=== PATIENT | female | born 1955 | race Caucasian/White ===

== ENCOUNTER 2017-07-03 14:46 | Emergency (ER) | payer OTHER ==
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
[2017-07-03] MEDS ORDERED: IBUPROFEN 600 MG TAB PO ONE (16:20)
[2017-07-03 17:53] VITALS: BP 128/68
== END 2017-07-03 17:51 | disposition home or self-care (01) ==
DX: S39.92XA Unspecified injury of lower back, initial encounter (principal); S32.020A Wedge compression fracture of second lumbar vertebra, initial encounter for closed fracture; I10 Essential (primary) hypertension; V48.5XXA Car driver injured in noncollision transport accident in traffic accident, initial encounter; Y92.79 Other farm location as the place of occurrence of the external cause; Y99.8 Other external cause status; Y93.89 Activity, other specified

== ENCOUNTER → 2017-08-27 | Day surgery (SDC) | payer OTHER ==
[~2017-08-27] MED LIST: BUPIVACAINE 0.25% 30 ML SDV ONE; DEPO METHYLPREDNISOLONE 40 MG/ML SDV ONE; LIDOCAINE 1% 300 MG/30 ML SDV ONE
== END | disposition home or self-care (01) ==
LOC: FIMAGING 09:34
PROVIDERS: ATTEND Radiology Diagnostic Radiology
DX: M53.3 Sacrococcygeal disorders, not elsewhere classified (principal)
CPT/HCPCS: J1030

== ENCOUNTER 2017-11-22 00:30 | Emergency (ER) | payer OTHER ==
[2017-11-22 00:57] LABS: PLATELET COUNT 620 10^3/uL (150-400)
[2017-11-22] MEDS ORDERED: NS 1,000 ML IV ONE (01:00)
--- NOTE | 2017-11-22 03:58 | EDPHY ---
H & P Stated Complaint: SZ like episodes Time Seen by Provider: 11/22/17 00:36 HPI/ROS: HPI The patient presents with concern for possible seizure, brought in by ambulance. She had gone out to dinner with friends and then returned to a friend's house. They noticed her staring off into space with trembling of her jaw lasting for about 1 min and then resolving spontaneously. During that time , the patient was not able to converse. 911 was called. Paramedics reported a 2nd episode lasting for 30 sec in the field and then a 3rd episode while in the ambulance. After the 3rd episode the patient was given Versed 2.5 mg with no further episodes. Patient denies any history of seizure. She has not had any head injury. She said she had about 1 glass of alcohol tonight. She has not had any fatigue or confusion after the episodes.. REVIEW OF SYSTEMS 10 systems were reviewed and negative with the exception of the elements mentioned in the history of present illness. PMHx: Hyperlipidemia Soc Hx: Lives alone, alcohol use PHYSICAL General Appearance: Alert, no distress Eyes: Pupils equal and round no pallor or injection ENT, Mouth: Mucous membranes moist Respiratory: There are no retractions, lungs are clear to auscultation Cardiovascular: Tachycardic rate with regular rhythm Gastrointestinal: Abdomen is soft and non-tender, no masses, bowel sounds normal Neurological: A&O x3, cranial nerves 2-12 intact, 5/5 strength in upper and lower extremities which is symmetric, normal finger to nose and heel to thomas testing Skin: Warm and dry, no rashes Musculoskeletal: Neck is supple non tender Extremities: symmetrical, full range of motion Psychiatric: Patient is oriented X 3, there is no agitation Source: Patient, EMS Exam Limitations: Intoxication - Personal History Current Tetanus/Diphtheria Vaccine: Yes Current Tetanus Diphtheria and Acellular Pertussis (TDAP): Yes - Medical/Surgical History Hx Asthma: No Hx Chronic Respiratory Disease: No Hx Diabetes: No Hx Cardiac Disease: No Hx Renal Disease: No Hx Cirrhosis: No Hx Alcoholism: No Hx HIV/AIDS: No Hx Splenectomy or Spleen Trauma: No Other PMH: BIPOLAR, HTN, - Social History Smoking Status: Never smoked Constitutional: Initial Vital Signs Temperature (C) 36.6 C 11/22/17 00:37 Heart Rate 114 H 11/22/17 00:37 Respiratory Rate 18 11/22/17 00:37 Blood Pressure 178/94 H 11/22/17 00:37 O2 Sat (%) 90 L 11/22/17 00:37 O2 Delivery Mode Room Air O2 (L/minute) 2 Allergies/Adverse Reactions: Sulfa (Sulfonamide Antibiotics) Allergy (Verified 10/08/15 10:51) Home Medications: Medication Instructions Recorded Citalopram [CeleXA 20 MG] 11/22/17 Dextroamphetamine ER 11/22/17 LORAZEPAM 11/22/17 Lisinopril 11/22/17 OXcarbazepine 11/22/17 Pravastatin Sodium 11/22/17 Medical Decision Making - Diagnostics EKG Interpretation: EKG: Complete interpretation has been separately recorded in the [email or web address] archive. Summary impression: Sinus tachycardia Imaging Results: CT head is unremarkable, discussed with Dr. Pedro from Radiology. Imaging: Discussed imaging studies w/ train caller Radiologist Differential Diagnosis: This is a 62-year-old female with mild hypertension, hyperlipidemia, anxiety, depression who presents brought in by ambulance for altered mental status. Tonight, friends witnessed episode in which her jaw tremble old, she stared off into space, and she was unresponsive. She had a 2nd episode in front of the paramedics and the 3rd episode in the ambulance. She was given Versed 2.5 mg IV with improvement in her symptoms. She was found to be tachycardic. She had a normal neurologic evaluation. CT scan of her head was relatively unremarkable. Her blood alcohol level was quite elevated and when I confronted her about this she did say she may have had 1-2 drinks today. She was given a L of fluid with improvement in her tachycardia. Initial lactate was 3.5. Given her alcohol history I feel this is most likely type B lactic acidosis and not related to sepsis. She has not had a fever here any other signs of infection. Lactate improved after fluid bolus. Given that she had 3 discrete episodes though apparently seem to have lucid intervals in between, I do think this is concerning for new onset seizures and she should be admitted to the hospital for observation. She does not want to come into the hospital because she would rather be at home. She accepts that she could have more seizures at home and could even , and is willing to accept this risk. I monitored her in the emergency department for several hours. She had no further events. She breath a lysed 0.04 and was clinically sober and still wanted to leave the emergency department so I did discharge her against medical advice. I explained that she could return at any time for further assessment. I am concerned that she is undermining the severity of her alcohol abuse and this is likely causing many of her symptoms. I have explained this to her. She says she will follow up with her primary care doctor. - Data Points Laboratory Results: Laboratory Results 11/22/17 00:39 11/22/17 00:39 Medications Given: Discontinued Medications Sodium Chloride (Ns) 1,000 mls @ 0 mls/hr IV EDNOW ONE; Wide Open PRN Reason: Protocol Stop: 11/22/17 01:01 Last Admin: 11/22/17 01:00 Dose: 1,000 mls Point of Care Test Results: Chemistry 11/22/17 11/22/17 00:38 00:35 POC Sodium 131 mEq/L L mEq/L (135-145) POC Potassium 4.0 mEq/L mEq/L (3.3-5.0) POC Chloride 95 mEq/L L mEq/L (97-110) POC BUN 14 mg/dL mg/dL (7-23) POC Creatinine 0.8 mg/dL mg/dL (0.6-1.0) POC Glucose 104 mg/dL H mg/dL (70-100) POC Troponin I 0.01 ng/mL ng/mL (0.00-0.08) ISTAT H&H 11/22/17 00:38 POC Hgb 13.9 gm/dL gm/dL (12.6-16.3) POC Hct 41 % % (38-47) Departure - Departure Disposition: Home, Routine, Self-Care Clinical Impression: Seizure, Alcohol intoxication Condition: Good Instructions: Alcohol Intoxication (ED), New-Onset Seizure in Adults (ED) Additional Instructions: You may have had a seizure tonight, it is difficult to know. We are concerned about this and would like to admit you to the hospital, however you would like to go home. If you would like to return for admission at any time, you're more than welcome to. I am concerned about your alcohol use and I am worried that this may be contributing to your episode tonight. I recommend you seek help for your drinking. Please follow-up with your primary care doctor in 1-2 days. Referrals: Jabier Ma PA [Primary Care Provider] - As per Instructions
[2017-11-22 04:04] VITALS: BP 175/106
--- NOTE | 2017-11-22 08:17 | CPEKG ---
Test Reason : OPEN Blood Pressure : / mmHG Vent. Rate : 111 BPM Atrial Rate : 111 BPM P-R Int : 175 ms QRS Dur : 086 ms QT Int : 336 ms P-R-T Axes : 072 031 245 degrees QTc Int : 457 ms Sinus tachycardia LVH with secondary repolarization abnormality Confirmed by Saray Finley ([id number]) on 11/22/2017 8:16:17 AM Referred By: Confirmed By:Saray Finley
== END 2017-11-22 04:04 | disposition home or self-care (01) ==
LOC: EDUNIT#
DX: E78.5 Hyperlipidemia, unspecified (principal); F10.929 Alcohol use, unspecified with intoxication, unspecified; E86.9 Volume depletion, unspecified
CPT/HCPCS: 82435-PO; 82565-PO; 82947-PO; 84132-PO; 84295-PO; 84484-PO; 84520-PO; 85014-PO; G0480

== ENCOUNTER 2017-11-22 15:51 | Emergency (ER) | payer OTHER ==
--- NOTE | 2017-11-22 15:49 | EDPHY ---
H & P Time Seen by Provider: 11/22/17 15:55 Constitutional: Initial Vital Signs Temperature (C) 36.4 C 11/22/17 15:59 Heart Rate 88 11/22/17 15:59 Respiratory Rate 18 11/22/17 15:59 Blood Pressure 157/109 H 11/22/17 15:59 O2 Sat (%) 96 11/22/17 15:59 O2 Delivery Mode Room Air Allergies/Adverse Reactions: Sulfa (Sulfonamide Antibiotics) Allergy (Verified 10/08/15 10:51) Home Medications: Medication Instructions Recorded Citalopram [CeleXA 20 MG] 11/22/17 Dextroamphetamine ER 11/22/17 LORAZEPAM 11/22/17 Lisinopril 11/22/17 OXcarbazepine 11/22/17 Pravastatin Sodium 11/22/17 Medical Decision Making ED Course/Re-evaluation: CHIEF COMPLAINT: Psychiatric evaluation HISTORY OF PRESENT ILLNESS: The patient is a 62 y/o female with a history of bipolar disorder arriving via EMS for a jose today. The patient was seen in the emergency department last night for a potential seizure and discharged home. She currently is not making any sense while talking. She states that she needs to see her orthopedic surgeon as that provider is the only person that can help her today. Per the patient's nurse, the patient is requesting to do cocaine today. No headache, chest pain, shortness of breath, abdominal pain, urinary or bowel complaints, fevers, numbness, paresthesias. REVIEW OF SYSTEMS: A comprehensive 10 system review of systems is otherwise negative aside from elements mentioned in the history of present illness and medical decision making. PHYSICAL EXAM: HR, BP, O2 Sat, RR. Temp noted General Appearance: Alert, well hydrated, appropriate, and non-toxic appearing. Head: Atraumatic without scalp tenderness or obvious injury Eyes: Pupils equal, round, reactive to light and accommodation, EOMI, no trauma , no injection. Ears: Clear bilaterally, no perforation, normal landmarks Nose: Atraumatic, no rhinorrhea, clear. Throat: There is no erythema or exudates, no lesions, normal tonsils, mucus membranes moist. Neck: Supple, 2+ carotid upstroke, nontender, no lymphadenopathy. Respiratory: No retractions, no distress, no wheezes, and no accessory muscle use. Lungs are clear to auscultation bilaterally. Cardiovascular: Regular rate and rhythm, no murmurs, rubs, or gallops. Bilateral carotid, radial, dorsalis pedis, and posterior tibial pulses intact. Good capillary refill all extremities. Gastrointestinal: Abdomen is soft, nontender, non-distended, no masses, no rebound, no guarding, no peritoneal signs. Musculoskeletal: Normal active ROM of all extremities, atraumatic. Neurological: Alert, appropriate, and interactive. The patient has normal DTRs and non-focal cranial nerves, motor, sensory, and cerebellar exam. Skin: No rashes, good turgor, no nodules on palpation. Psych: Pressured and tangential speech Past medical history: Bipolar, hypertension Past surgical history: Denies Family history: Denies Social history: Friends at bedside, lives in [place], [facility] DIFFERENTIAL DIAGNOSIS: The differential diagnosis for the patient's depression included but was not limited to functional and major depression, situational depression, medication side effect, drugs, and alcohol abuse. MEDICAL DECISION MAKING: The patient is a 62 y/o female arriving via EMS for jose. The patient has pressured and tangential speech and is in manic psychosis. Patient is in no acute distress and is hemodynamically stable. We are awaiting psychiatric team' s evaluation. Patient has known history of psychiatric disorders and is here for evaluation. 1750: I have placed this patient on a detainer. 1837: Patient tested positive for cocaine and marijuana. 2300: Patient care turned over to Dr. Finley at shift change. Psych evaluation pending at this time. (Rui Rico) 6:00 a.m.- The patient has been stable during my shift. She is awaiting mental health evaluation. At 7:00 a.m., I anticipate the case will be signed out to the oncoming provider Dr. Thakkar. (Saray Finley) Other Provider: Care assumed from Dr. Finley at 6:53 a.m. With plan for mental health evaluation. She has a history of bipolar disorder and is positive for cocaine, presented with jose. 814: Per Bossman Garcia patient had psychiatric evaluation and is not currently suicidal, has primary care follow-up, does not appear to be gravely disabled or a danger to herself or others, and is stable for follow-up. Psychiatric recommendation is to discharge the patient. (Robson Thakkar) - Data Points Laboratory Results: Laboratory Results 11/22/17 17:00 11/22/17 17:00 Departure - Departure Disposition: Home, Routine, Self-Care Clinical Impression: Bipolar disorder, Cocaine abuse Condition: Fair Instructions: Cocaine Abuse (ED), Bipolar Disorder (ED) Referrals: Jabier Ma PA [Physician Back Tender Cylinder] - As per Instructions Report Scribed for: Rui Rico Report Scribed by: Amanda Chávez Date of Report: 11/22/17 Time of Report: 15:55
[2017-11-22 17:13] LABS: PLATELET COUNT 491 10^3/uL (150-400)
[2017-11-23 08:15] VITALS: BP 178/93
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
--- NOTE | 2017-11-23 08:52 | ASMTTCLDSP ---
TLC Discharge Disposition Disposition: Answers: Discharge If Answers: Yes DISCHARGED: Patient/family given suicide hotline info & SAMHSA brochure? Disposition Notes: Notes: Pt stated commitment or ability to keep self safe, denied thoughts of self harm or harm to others. Pt expressed a desire to f/u with her PCP on Thursday and psychiatrist. Pt was given local hotline information and SAMHSA brochure After an Attempt. Discharge Concerns/Recommendations: Notes: In consultation with [facility] ED physician, Robson Thakkar MD, Dr. Thakkar concurred that pt does not appear to meet 27-65 criteria requiring psychiatric hospitalization as pt does not appear to be an imminent risk of harm to self/others/gravely disabled due to a mental illness condition. Was patient given the Answers: Not applicable Inpatient Behavioral Health Prohibited Belongings List while in the ED? Date Signed: 11/23/2017 08:52 AM Electronically Signed By:Bossman Wolf
== END 2017-11-23 08:33 | disposition home or self-care (01) ==
LOC: EDUNIT#
DX: F31.10 Bipolar disorder, current episode manic without psychotic features, unspecified (principal); F14.10 Cocaine abuse, uncomplicated; I10 Essential (primary) hypertension
CPT/HCPCS: 80305; G0480

== ENCOUNTER 2017-11-30 19:15 | Observation (INO) | payer OTHER ==
[2017-11-30] MEDS: NS W/ 20 KCl/L 1,000 ML IV SCH (21:32)
[2017-11-30] MEDS: FUROSEMIDE 20 MG TAB PO SCH (21:33)
[2017-11-30] MEDS: LORazepam 0.5 MG TAB PO PRN (21:33)
--- NOTE | 2017-11-30 21:42 | GHP ---
DATE OF ADMISSION: 11/30/2017 REASON FOR ADMISSION: Hyponatremia. HISTORY: The patient is a 62-year-old female, who has a prior history of hyponatremia, probably rela lily to her medications she has taken for bipolar mood disorder. She does have a history of alcohol m isuse, but that has not been a problem recently apparently. She was seen with mild hyponatremia. Adi ruiz had a serum sodium of 123 on blood work that was drawn on Thursday. She had been placed on a fluid r estricted diet. She states she does not drink large amounts of fluids under any circumstance, and do es eat salt. She was seen in the office today. The serum sodium was rechecked, and it had gone down to 122 mEq/L. She has been admitted to the hospital for management of her hyponatremia. PAST MEDICAL HISTORY: Significant for bipolar disorder. She was seen in the emergency room 8 days a go with an episode of jose, at which time she tested positive for cocaine and marijuana. She also h ad an elevated serum alcohol level at that visit. REVIEW OF SYSTEMS: She has been doing reasonably well since then. She has denies headache, visual c hanges. She has had an episode, which may have been some form of seizure. PHYSICAL EXAM: VITAL SIGNS: Blood pressure 144/80, pulse 100 and regular, oxygen saturation 98% on room air, temperature is 98.2. HEENT: Pupils equal, react to light. GENERAL: She is alert, orient ed, and appropriate. She shows no evidence of jose, or depression. LUNGS: Clear to auscultation. HEART: Regular rate and rhythm without murmur. ABDOMEN: Nontender. EXTREMITIES: She has no peripheral edema. IMPRESSION: Hyponatremia of uncertain etiology. Considering her recent episode of alcohol, marijuan a, and cocaine, that is used on top of her bipolar medications, there is a very high probability that this is a drug-induced hyponatremia, and her citalopram, olanzapine, and Trileptal are the leading c andidates contributing to the hyponatremia. PLAN: Will admit. Will correct the serum sodium with IV saline and Lasix. Will need to talk with h psychiatrist regarding our options for adjusting her bipolar medications. /[id number]/MODL
[2017-12-01] MEDS: LORazepam 0.5 MG TAB PO PRN ×2 (03:30→20:43)
[2017-12-01] MEDS: FUROSEMIDE 20 MG TAB PO SCH ×3 (06:03→21:50)
[2017-12-01] MEDS: NS W/ 20 KCl/L 1,000 ML IV SCH ×2 (06:03→18:07)
--- NOTE | 2017-12-01 08:56 | ASMTLACE ---
RHODA Comorbidities - select Answers: Opioid dependence all that apply / Chronic pain Other Notes: HTN # of Emergency department Answers: 3-4 visits in the last 6 months Social determinants Answers: History of substance abuse (ETOH, street drugs, prescription drugs, etc.) Mental health diagnosis (anxiety, depression, pers onality disorders, etc.) Score: 14 Date Signed: 12/01/2017 08:56 AM Electronically Signed By:Joaquina Alvarez
[2017-12-01] MEDS: LISINOPRIL 20 MG TAB PO SCH (09:47)
--- NOTE | 2017-12-01 09:55 | SOAPPROG ---
SOAP Progress Note Assessment/Plan: Assessment: Asiya is a 62yo female with a h/o ETOH and substance abuse as well as bipolar disorder seen by Dr. Rincon, who presented to the office Thursday for a f/u and had a sodium of 123. Recheck yesterday showed sodium of 122. She was admitted for correction and medication adjustment. Plan: Hyponatremia- better on recheck today at 129. Will recheck at 1500 to make sure she isn't coming up too fast. Slow fluids to 100cc/h, loosen fluid restriction to 1500cc. Will d/w Dr. Rincon today regarding trileptal, mood stabilizer and SSRI. Bipolar disorder- as mentioned above - d/w Dr. Rincon today to make appropriate med adjustments H/o ETOH and substance abuse- pt has been sober for a week and a half since her prior hospitalization, continue to offer ongoing support of sobriety Dispo- pending correction of hyponatremia 12/01/17 09:50 Subjective: Briana is resting in bed this AM, says she feels a little bit more herself today already. Objective: Vital Signs Temp Pulse Resp BP Pulse Ox 36.6 C 71 18 138/87 H 95 12/01/17 07:43 12/01/17 07:43 12/01/17 07:43 12/01/17 07:43 12/01/17 07:43 Laboratory Results 12/01/17 03:34 11/30/17 12/01/17 12/02/17 05:59 05:59 05:59 Intake Total 1395 Balance 1395 Gen- alert, oriented Head- normocepahlic, atraumatic CV- S1S2, RRR, no murmurs, rubs, gallops Resp- LCTAB, no wheezing, rhonchi, rales Abd- SNT nondistended Extremities- no peripheral edema Neuro- mildly tremulous, otherwise intact Psych- stable, mood/affect full range ICD10 Worksheet Patient Problems: Problems Problem Status Onset Laceration of chest Acute
--- NOTE | 2017-12-01 13:46 | ASMTCAGE ---
CAGE Additional Comments Pt reports sobriety since fall 2016 except for 1 drink on Tuesday 11/28. Pt felt questions did not apply to her current situation. Date Signed: 12/01/2017 01:45 PM Electronically Signed By:Cynthia Jha RN
--- NOTE | 2017-12-01 13:59 | ASMTCMCOM ---
CM Note CM Note Notes: 12/01/2017 Case Management Note Met w/pt to discuss discharge needs. Pt admitted for hyponatremia. 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 There are no therapy evals ordered at this time. Pt lists friends Radha Beck [phone] and Myra Ellis [phone] as contacts. Pt is a and an only child with both parents . Attempted to complete the CAGE questionnaire. Pt was guarded with answering questions. Pt reports inpatient and outpatient treatment while in [place] caring for her parents approximately 5 years ago. Pt reports achieving sobriety in fall through group therapy and private counseling. Pt psychiatrist is Dr. Adrian Acosta in [place]. Pt reports drinking one alcoholic beverage on ThursdayNov 28 but considers her sobriety intact. Pt asked why CAGE was ordered. Pt feels her past history with alcohol and cocaine is "following her around" and was tearful when explaining it is mentioned on her previous discharge paperwork. Pt refused resources. Case Management d/c poc: independent with follow up as directed. Case Management available if needs change. Date Signed: 12/01/2017 01:58 PM Electronically Signed By:Cynthia Jha RN
[2017-12-01] MEDS ORDERED: OLANZapine 10 MG TAB PO SCH (21:00)
[2017-12-02] MEDS: FUROSEMIDE 20 MG TAB PO SCH (06:09)
[2017-12-02 08:24] VITALS: BP 113/73
--- NOTE | 2017-12-02 08:47 | SOAPPROG ---
SOAP Progress Note Assessment/Plan: Assessment: Plan: 12/02/17 08:43 profound hyponatremia--improved. Will d/c lasix, ivf's. and D/C home. No ill challenges from no Celexa and Trileptal for 2-3 days. depression, anxiety, mood instability--all good for now. Will continue with olanzapine 7.5 mg hs and prn lorazepam. (olanzapine called to [facility]) will check a BMP at the office on Thursday. Subjective: Asiya is feeling SO much better. She feels positive about her medications. She is ready to go home. Objective: Vital Signs Temp Pulse Resp BP Pulse Ox 36.6 C 75 14 113/73 96 12/02/17 08:00 12/02/17 08:00 12/02/17 08:00 12/02/17 08:00 12/02/17 08:00 Laboratory Results 12/02/17 03:48 12/01/17 12/02/17 12/03/17 05:59 05:59 05:59 Intake Total 1395 2683 Balance 1395 2683 Gen: bright, clear, calm Lungs: CTAB Heart: RRR BP stable Mood: wonderful Na 133 ICD10 Worksheet Patient Problems: Problems Problem Status Onset Laceration of chest Acute
[2017-12-02] MEDS: LISINOPRIL 20 MG TAB PO SCH (08:53)
--- NOTE | 2017-12-02 09:25 | GDS ---
REASON FOR ADMISSION: Profound hyponatremia. DISCHARGE DIAGNOSIS: Profound hyponatremia. HOSPITAL COURSE: Patient was admitted to the hospital for a sodium level of 122. She was given IV f luids and Lasix with nice improvement of her sodium level from 122 to 129 to today. She has underlyi ng anxiety, depression,and mood instability. She had been on Celexa and Trileptal, which were drivin g forces on her hyponatremia. These have both been stopped. She has not had any obvious withdrawal symptoms from stopping either. She has not had a dose of either in 48-72 hours. She has been given olanzapine at bedtime after a consultation with her psychiatrist. This seems to be fitting her well. She would like to continue with 7.5 mg nightly. A prescription for 5 mg tablets, #60, 1 b.i.d. was called to [facility] in [place]. Given her profound hyponatremia, she will continue on a f luid restriction of 1500 mL. She will be seen in our office on Thursday to repeat a BMP, and then furt her follow up with an office appointment next week. /[id number]/MODL
--- NOTE | 2017-12-02 14:49 | ASDISCHSUM ---
Discharge Information Plan Status:Home with No Needs Medically Cleared to Leave:12/02/2017 Discharge Date:12/02/2017 10:29 AM CM D/C Disposition:Home, Routine, Self-Care ADT D/C Disposition:Home, Routine, Self-Care Projected Discharge Date:12/02/2017 10:29 AM Transportation at D/C:Self Discharge Delay Reason: Follow-Up Date:12/02/2017 10:29 AM Discharge Slot: Final Diagnosis: Placement Information Patient Contact Information Contact Name:EMERY Relationship:Friend Address: City:[place] Alternate Phone: [facility]/Zip Code:[place] Email: Financial Information Financial Class:[employer] Primary Plan Desc:[facility] PATHWAY PLAN Primary Plan Number:[id number] Secondary Plan Desc: Secondary Plan Number: Assessment Information LACE LACE Comorbidities - select Answers: Opioid dependence all that apply / Chronic pain Other Notes: HTN # of Emergency department Answers: 3-4 visits in the last 6 months Social determinants Answers: History of substance abuse (ETOH, street drugs, prescription drugs, etc.) Mental health diagnosis (anxiety, depression, pers onality disorders, etc.) Score: 14 Date Signed: 12/01/2017 08:56 AM Electronically Signed By:Joaquina Alvarez CAGE Questionnaire CAGE Additional Comments Pt reports sobriety since fall 2016 except for 1 drink on Tuesday 11/28. Pt felt questions did not apply to her current situation. Date Signed: 12/01/2017 01:45 PM Electronically Signed By:Cynthia Jha RN [facility] Progress Note CM Note CM Note Notes: 12/01/2017 Case Management Note Met w/pt to discuss discharge needs. Pt admitted for hyponatremia. 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 There are no therapy evals ordered at this time. Pt lists friends Radha Beck [phone] and Myra Ellis [phone] as contacts. Pt is a and an only child with both parents . Attempted to complete the CAGE questionnaire. Pt was guarded with answering questions. Pt reports inpatient and outpatient treatment while in [place] caring for her parents approximately 5 years ago. Pt reports achieving sobriety in fall through group therapy and private counseling. Pt psychiatrist is Dr. Adrian Acosta in [place]. Pt reports drinking one alcoholic beverage on ThursdayNov 28 but considers her sobriety intact. Pt asked why CAGE was ordered. Pt feels her past history with alcohol and cocaine is "following her around" and was tearful when explaining it is mentioned on her previous discharge paperwork. Pt refused resources. Case Management d/c poc: independent with follow up as directed. Case Management available if needs change. Date Signed: 12/01/2017 01:58 PM Electronically Signed By:Cynthia Jha RN LACE LACE Length of stay for Answers: 1 day current admission Acuity / Level of Answers: No Care: Did the patient have an inpatient admission? Comorbidities - select Answers: Opioid dependence all that apply / Chronic pain Other Notes: HTN # of Emergency department Answers: 3-4 visits in the last 6 months Social determinants Answers: History of substance abuse (ETOH, street drugs, prescription drugs, etc.) Mental health diagnosis (anxiety, depression, pers onality disorders, etc.) Score: 15 Date Signed: 12/02/2017 02:46 PM Electronically Signed By:Cynthia Jha RN Case Management Discharge Plan Note Case Management Discharge Discharge Order Complete? Answers: Yes Patient to Obtain Answers: Independently Medications Transportation Arranged Answers: Other Notes: slef Discharge Comments Notes: 12/02/2017 Case Management Note Pt discharged independent with follow up as directed. Date Signed: 12/02/2017 02:48 PM Electronically Signed By:Cynthia Jha RN Intervention Information
== END 2017-12-02 10:29 | disposition home or self-care (01) ==
LOC: F2W 19:15
PROVIDERS: ADMIT Internal Medicine; ATTEND Internal Medicine
DX: E87.1 Hypo-osmolality and hyponatremia (principal); F19.10 Other psychoactive substance abuse, uncomplicated; F31.9 Bipolar disorder, unspecified
CPT/HCPCS: G0378 ×2

== ENCOUNTER → 2018-02-05 | Outpatient (CLI) | payer OTHER | LOC: FIMAGING 13:54 | PROVIDERS: ATTEND Physician Assistant | DX: Z13.820 Encounter for screening for osteoporosis (principal); M80.08XA Age-related osteoporosis with current pathological fracture, vertebra(e), initial encounter for fracture; S32.020D Wedge compression fracture of second lumbar vertebra, subsequent encounter for fracture with routine healing ==

== ENCOUNTER → 2018-06-25 | Outpatient (CLI) | payer OTHER | LOC: FIMAGING 09:05 | PROVIDERS: ATTEND Physician Assistant | DX: R91.1 Solitary pulmonary nodule (principal) ==